=== PATIENT | male | born 1975 | race American Indian/Alaskan Native ===

== ENCOUNTER 2018-04-20 05:37 | Emergency (ER) | payer OTHER ==
[2018-04-20 07:23] VITALS: BP 108/67
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
[2018-04-20] MEDS ORDERED: TRIPLE ANTIBIOTIC TP ONE (08:31)
== END 2018-04-20 09:00 | disposition home or self-care (01) ==
LOC: ED 05:37
DX: T24.202A Burn of second degree of unspecified site of left lower limb, except ankle and foot, initial encounter (principal); E03.9 Hypothyroidism, unspecified; X08.8XXA Exposure to other specified smoke, fire and flames, initial encounter; Y93.89 Activity, other specified; Y92.89 Other specified places as the place of occurrence of the external cause; Y99.8 Other external cause status
CPT/HCPCS: 99282; A6250